=== PATIENT | male | born 2000 | race Caucasian/White ===

== ENCOUNTER 2020-01-17 14:49 | Emergency (ER) | payer OTHER ==
[~2020-01-17] VITALS: Ht 167.6 cm; Wt 53.2 kg
[2020-01-17 14:55] VITALS: BP 102/60; Ht 167.6 cm; Wt 53.2 kg
== END 2020-01-17 15:33 | disposition home or self-care (01) ==
LOC: ED 14:49
DX: M54.9 Dorsalgia, unspecified (principal); Z13.9 Encounter for screening, unspecified